=== PATIENT | male | born 1980 | race Caucasian/White ===

== ENCOUNTER 2019-07-11 10:14 | Emergency (ER) | payer SELFPAY ==
[~2019-07-11] VITALS: Ht 175.3 cm; Wt 70.3 kg
[2019-07-11] MEDS ORDERED: IV NORMAL SALINE 1,000ML 1,000 ML IV ONE (10:45)
[2019-07-11 10:48] LABS: BASO % 0 % (0-3); EOS % 0 % (0-3); HEMATOCRIT 46.4 % (39.0-53.0); HEMOGLOBIN 15.5 g/dL (13.0-17.5); LYMPH # 1.3 x10^3/uL (1.0-4.8); LYMPH % 7 % (24-48); MEAN CORPUSCULAR HEMOGLOBIN 32 pg (25-35); MEAN CORPUSCULAR HGB CONC 33 g/dL (31-37); MEAN CORPUSCULAR VOLUME 96 fL (79-100); MONO # 0.7 x10^3/uL (0.0-1.1); MONO % 4 % (0-9); NEUT # 18.1 x10^3uL (1.8-7.7); NEUT % 90 % (31-73); PLATELET COUNT 413 x10^3/uL (140-400); RED BLOOD COUNT 4.84 x10^6/uL (4.30-5.70); RED CELL DISTRIBUTION WIDTH 14.1 % (11.5-14.5); WHITE BLOOD COUNT 20.2 x10^3/uL (4.0-11.0)
[2019-07-11] MEDS ORDERED: ONDANSETRON PF 4 MG/2 ML VIAL. IVP ONE (11:00)
[2019-07-11] MEDS ORDERED: KETOROLAC 30 MG/ML VIAL. IVP ONE (11:00)
[2019-07-11] MEDS ORDERED: MORPHINE SULFATE 4 MG/ML DISP.SYRIN. IV ONE (11:00)
--- NOTE | 2019-07-11 11:12 | PHYS DOC ---
Past History Past Medical History: UTI Additional Past Surgical Histo: oral surgery Alcohol Use: None Drug Use: None Adult General Chief Complaint Chief Complaint: FLANK PAIN HPI HPI 39-year-old male presents with right flank pain. The patient has been having increased urinary frequency for the past 2 days. This morning after he woke up, he had pretty sudden onset of moderate to severe flank pain on the right side. He thought it might just be a cramping overwork itself out. He tried to go to work, but the pain continued to increase. He came to the emergency room with 8 out of 10 pain on the right flank. Denies trauma or falls. She has no history of kidney stones. He has had UTI in the past. He denies fever or chills. Review of Systems Review of Systems Constitutional: Denies fever or chills [] Eyes: Denies change in visual acuity, redness, or eye pain [] HENT: Denies nasal congestion or sore throat [] Respiratory: Denies cough or shortness of breath [] Cardiovascular: No additional information not addressed in HPI [] GI: Right flank pain. Denies abdominal pain, nausea, vomiting, bloody stools or diarrhea [] : Increased urinary frequency. [] Musculoskeletal: Denies back pain or joint pain [] Integument: Denies rash or skin lesions [] Neurologic: Denies headache, focal weakness or sensory changes [] Endocrine: Denies polyuria or polydipsia [] All other systems were reviewed and found to be within normal limits, except as documented in this note. Current Medications Current Medications Current Medications Medications (Trade) Dose Ordered Sig/[facility] Start Time Stop Time Status Last Admin Dose Admin Ketorolac Tromethamine (Toradol 30mg Vial) 30 mg 1X ONCE 07/11/19 11:00 07/11/19 11:01 DC 07/11/19 10:50 30 MG Morphine Sulfate (Morphine 4mg Syringe) 4 mg 1X ONCE 07/11/19 11:00 07/11/19 11:01 DC 07/11/19 10:49 4 MG Ondansetron HCl (Zofran) 4 mg 1X ONCE 07/11/19 11:00 07/11/19 11:01 DC 07/11/19 10:51 4 MG Sodium Chloride 1,000 ml @ 1,000 mls/hr 1X ONCE 07/11/19 10:45 07/11/19 11:44 07/11/19 10:48 1,000 MLS/HR Allergies Allergies Allergies Coded Allergies Type Severity Reaction Last Updated Verified No Known Drug Allergies 07/11/19 No Physical Exam Physical Exam Constitutional: Well developed, well nourished, no acute distress, non-toxic appearance. [] HENT: Normocephalic, atraumatic, bilateral external ears normal, oropharynx moist, no oral exudates, nose normal. [] Eyes: PERRLA, EOMI, conjunctiva normal, no discharge. [] Neck: Normal range of motion, no tenderness, supple, no stridor. [] Cardiovascular:Heart rate regular rhythm, no murmur [] Lungs & Thorax: Bilateral breath sounds clear to auscultation [] Abdomen: Bowel sounds normal, soft, no tenderness, no masses, no pulsatile masses. [] Skin: Warm, dry, no erythema, no rash. [] Back: No tendernes. Right-sided CVA tenderness. [] Extremities: No tenderness, no cyanosis, no clubbing, ROM intact, no edema. [] Neurologic: Alert and oriented X 3, normal motor function, normal sensory function, no focal deficits noted. [] Psychologic: Affect normal, judgement normal, mood normal. [] Current Patient Data Vital Signs Vital Signs Date Time Temp Pulse Resp B/P (MAP) Pulse Ox O2 Delivery O2 Flow Rate FiO2 07/11/19 10:49 18 Room Air 07/11/19 10:39 97.7 100 Lab Results Laboratory Tests Test 07/11/19 10:35 White Blood Count 20.2 x10^3/uL (4.0-11.0) H Red Blood Count 4.84 x10^6/uL (4.30-5.70) Hemoglobin 15.5 g/dL (13.0-17.5) Hematocrit 46.4 % (39.0-53.0) Mean Corpuscular Volume 96 fL (79-100) Mean Corpuscular Hemoglobin 32 pg (25-35) Mean Corpuscular Hemoglobin Concent 33 g/dL (31-37) Red Cell Distribution Width 14.1 % (11.5-14.5) Platelet Count 413 x10^3/uL (140-400) H Neutrophils (%) (Auto) 90 % (31-73) H Lymphocytes (%) (Auto) 7 % (24-48) L Monocytes (%) (Auto) 4 % (0-9) Eosinophils (%) (Auto) 0 % (0-3) Basophils (%) (Auto) 0 % (0-3) Neutrophils # (Auto) 18.1 x10^3uL (1.8-7.7) H Lymphocytes # (Auto) 1.3 x10^3/uL (1.0-4.8) Monocytes # (Auto) 0.7 x10^3/uL (0.0-1.1) Eosinophils # (Auto) 0.0 x10^3/uL (0.0-0.7) Basophils # (Auto) 0.0 x10^3/uL (0.0-0.2) Platelet Estimate Pending EKG EKG [] Radiology/Procedures Radiology/Procedures [] Impressions: EXAM: CT ABDOMEN/PELVIS WITHOUT CONTRAST. HISTORY: Right flank pain. TECHNIQUE: Computed tomography of the abdomen and pelvis was performed without intravenous contrast. COMPARISON: None. FINDINGS: Lung windows through the visualized portions of the bases reveal small regions of air trapping in both lower lobes suggesting small airways disease. Bone windows reveal no suspicious lesions. There is a 2 mm calculus at the orifice of the right ureterovesical junction. There is mild right pelviectasis. A tiny left renal calculus measures 2 mm or less. Subcentimeter left renal cysts are suspected. There are no clearly suspicious renal lesions without contrast. The appendix is not inflamed. There is no small bowel obstruction. The pancreas, adrenal glands and spleen are unremarkable without contrast. A fluid density lesion inferiorly in hepatic segment 3 is most likely a benign cyst and measures 11 mm. IMPRESSION: 1. 2 mm right ureterovesical junction calculus with mild proximal obstructive findings. 2. <2 mm left renal calculus. *One or more of the following individualized dose reduction techniques were utilized for this examination: 1. Automated exposure control. 2. Adjustment of the mA and/or kV according to patient size. 3. Use of iterative reconstruction technique. Electronically signed by: Deepika Eller MD (07/11/2019 11:10 AM) [facility] DICTATED AND SIGNED BY: JAYLEN ELLER MD DATE: 07/11/19 1110 CC: ERICA MADRID DO; PENG AGUILAR ~ Course & Med Decision Making Course & Med Decision Making Pertinent Labs and Imaging studies reviewed. (See chart for details) The patient slept significant for an elevated white count 20. His CT scan does show a 2 mm stone that is partially obstructing at this time. This is likely the source the patient's pain. His urinalysis is pending to evaluate for infection. I have given the patient milligrams of Toradol, 4 mg of Zofran 4 mg of morphine. This has helped his pain. Stone this size should pass. He does not have urinary tract infection. He is stable for discharge at this time. [] Dragon Disclaimer Dragon Disclaimer This electronic medical record was generated, in whole or in part, using a voice recognition dictation system. Departure Departure: Impression: Primary Impression: Kidney stone Disposition: 01 HOME, SELF-CARE Condition: STABLE Referrals: PENG AGUILAR (PCP) Patient Instructions: Kidney Stones, Utab-[id number] Scripts Tamsulosin Hcl (FLOMAX) 0.4 Mg Cap.er.24h 1 CAP PO DAILY for kidney stone for 14 Days, #14 CAP Prov: ERICA MADRID DO 07/11/19 Hydrocodone Bit/Acetaminophen (NORCO 5-325 TABLET) 1 Each Tablet 1 TAB PO PRN Q6HRS PRN for PAIN, #10 TAB 0 Refills Prov: ERICA MADRID DO 07/11/19 ERICA MADRID DO Jul 11, 2019 11:12
[2019-07-11 11:15] LABS: ALBUMIN 4.2 g/dL (3.4-5.0); ALBUMIN/GLOBULIN RATIO 1.3 (1.0-1.7); CALCIUM 8.9 mg/dL (8.5-10.1); CREATININE 1.1 mg/dL (0.7-1.3); GFR 73.8; POTASSIUM 3.9 mmol/L (3.5-5.1); TOTAL BILIRUBIN 0.7 mg/dL (0.2-1.0); TOTAL PROTEIN 7.5 g/dL (6.4-8.2)
[2019-07-11 12:01] VITALS: BP 114/75
[2019-07-11 12:17] LABS: % BANDS 5 % (0-9); % BASOS 0 % (0-3); % EOS 0 % (0-5); % LYMPHS 7 % (24-48); % MONOS 2 % (0-10); % SEGS 86 % (35-66)
[2019-07-11 12:20] LABS: PLT ESTIMATE ADEQUATE (ADEQUATE)
[2019-07-11] MEDS ORDERED: HYDR-3165 PO (12:31)
[2019-07-11] MEDS ORDERED: TAMS0.4C97 PO (12:31)
[2019-07-11 13:01] LABS: CLARITY,URINE CLEAR; COLOR,URINE ORANGE
[2019-07-11 13:02] LABS: BILIRUBIN,URINE NEG (NEG)
[2019-07-11 13:03] LABS: BACTERIA,URINE 0 /HPF (0-FEW); SPERM,URINE PRESENT /HPF; SQUAMOUS EPITHELIAL CELL,UR OCC /LPF
== END 2019-07-11 13:18 | disposition home or self-care (01) ==
LOC: ER 10:14
DX: N20.2 Calculus of kidney with calculus of ureter (principal); Z87.440 Personal history of urinary (tract) infections
CPT/HCPCS: 36415; 74176; 80053; 81001; 85007; 85025; 96374; 96375; 99285; J1885; J2270; J2405; J7030